=== PATIENT | male | born 1960 | race Caucasian/White ===

== ENCOUNTER 2017-05-19 12:29 | Inpatient (IN) | payer MEDICAID, OTHER ==
[~2017-05-19] VITALS: Ht 188 cm; Wt 92.1 kg
[2017-05-19] MEDS ORDERED: SODIUM CHLORIDE 0.9% 1,000 ML IV ONE (12:53)
[2017-05-19] MEDS ORDERED: SODIUM CHLORIDE FLUSH 10ML SYR IVF ONE (13:00)
[2017-05-19 13:12] LABS: HEMATOCRIT 39.6 % (39.2-51.8); HEMOGLOBIN 13.3 g/dL (13.7-18.0); WHITE BLOOD COUNT 18.2 x10^3/uL (3.4-10)
[2017-05-19 13:23] LABS: ASPARTATE AMINO TRANSFERASE 17 U/L (15-37); BLOOD UREA NITROGEN 12 mg/dL (7-18)
[2017-05-19 13:35] LABS: DIFF TOTAL CELLS COUNTED 100 CELL DIFF
[2017-05-19 13:37] LABS: LARGE PLATELETS 1+; VERIFY COUNTS? YES
[2017-05-19] MEDS ORDERED: AMPICILLIN/SULBACTAM 3 GM in SODIUM CHLORIDE 0.9% 100 ML IV ONE (14:00)
[2017-05-19] MEDS ORDERED: SODIUM CHLORIDE 0.9% 1,000ML IVBOLUS ONE (14:30)
[2017-05-19] MEDS ORDERED: VANCOMYCIN PER PHARMACY MC PRN ×2 (15:00→15:30)
[2017-05-19] MEDS ORDERED: PHARMACOKINETIC CONSULTATION MC ONE (15:00)
[2017-05-19] MEDS ORDERED: VANCOMYCIN 2,000 MG in SODIUM CHLORIDE 0.9% 500 ML IV ONE (15:00)
[2017-05-19] MEDS ORDERED: NS + 20MEQ KCL 1,000 ML IV SCH (15:22)
[2017-05-19] MEDS ORDERED: POLYETHYLENE GLYCOL 17 GM PACKET PO PRN (15:30)
[2017-05-19] MEDS ORDERED: ONDANSETRON 2MG/ML, 2ML IVPush PRN (15:30)
[2017-05-19] MEDS ORDERED: POTASSIUM CHLORIDE 20 MEQ TAB.ER.PRT PO ONE (15:30)
[2017-05-19] MEDS ORDERED: LABETALOL 5MG/ML, 20ML IVPush PRN (15:30)
[2017-05-19] MEDS ORDERED: ACETAMINOPHEN 325 MG TABLET PO PRN (15:30)
[2017-05-19] MEDS ORDERED: BISACODYL 10 MG SUPP PR PRN (15:30)
[2017-05-19] MEDS: AMPICILLIN/SULBACTAM 3 GM in SODIUM CHLORIDE 0.9% 100 ML IV SCH ×2 (15:30→21:39)
[2017-05-19] MEDS ORDERED: DOCUSATE 100 MG CAPSULE PO PRN (15:30)
[2017-05-19] MEDS ORDERED: POTASSIUM CHLORIDE 20 MEQ TAB.ER.PRT ONE (15:48)
[2017-05-19] MEDS ORDERED: ENOXAPARIN 40 MG/0.4 ML ONE (16:09)
[2017-05-19] MEDS ORDERED: NS + 20MEQ KCL 1,000 ML IV ONE (16:09)
[2017-05-19] MEDS: ENOXAPARIN 40 MG/0.4 ML SQ SCH (16:17)
[2017-05-19] MEDS ORDERED: PHARMACOKINETIC MONITORING MC PRN (17:30)
[2017-05-19 19:36] VITALS: BP 128/75
[2017-05-20 01:30] VITALS: BP 119/74
[2017-05-20] MEDS: AMPICILLIN/SULBACTAM 3 GM in SODIUM CHLORIDE 0.9% 100 ML IV SCH ×4 (03:26→21:06)
[2017-05-20] MEDS: VANCOMYCIN 1,800 MG in SODIUM CHLORIDE 0.9% 250 ML IV SCH ×2 (04:08→18:27)
[2017-05-20 05:58] LABS: HEMATOCRIT 36.7 % (39.2-51.8); HEMOGLOBIN 12.4 g/dL (13.7-18.0); WHITE BLOOD COUNT 18.1 x10^3/uL (3.4-10)
[2017-05-20 06:19] LABS: DIFF TOTAL CELLS COUNTED 100 CELL DIFF
[2017-05-20 06:21] LABS: VERIFY COUNTS? YES
[2017-05-20 06:35] LABS: BLOOD UREA NITROGEN 12 mg/dL (7-18)
[2017-05-20 06:49] LABS: DAU SCREEN DISCLAIMER
[2017-05-20 08:00] VITALS: BP 120/73
[2017-05-20] MEDS: HYDROcodone/APAP 5/325 TABLET PO PRN ×2 (10:43→21:06)
[2017-05-20 13:57] VITALS: BP 108/70
[2017-05-20] MEDS: ENOXAPARIN 40 MG/0.4 ML SQ SCH (18:27)
[2017-05-20 19:04] VITALS: BP 118/75
[2017-05-21 02:40] VITALS: BP 110/67
[2017-05-21] MEDS: AMPICILLIN/SULBACTAM 3 GM in SODIUM CHLORIDE 0.9% 100 ML IV SCH ×4 (03:36→23:30)
[2017-05-21] MEDS: VANCOMYCIN 1,800 MG in SODIUM CHLORIDE 0.9% 250 ML IV SCH ×2 (04:11→18:35)
[2017-05-21 07:49] VITALS: BP 95/59
[2017-05-21] MEDS: HYDROcodone/APAP 5/325 TABLET PO PRN ×3 (10:40→23:38)
[2017-05-21 11:00] LABS: HEMATOCRIT 34.5 % (39.2-51.8); HEMOGLOBIN 11.7 g/dL (13.7-18.0); WHITE BLOOD COUNT 12.2 x10^3/uL (3.4-10)
[2017-05-21 11:12] LABS: BLOOD UREA NITROGEN 13 mg/dL (7-18)
[2017-05-21 13:01] VITALS: BP 114/68
[2017-05-21] MEDS: ENOXAPARIN 40 MG/0.4 ML SQ SCH (18:35)
[2017-05-21 20:23] VITALS: BP 112/71
[2017-05-22 02:47] VITALS: BP 118/74
[2017-05-22] MEDS: AMPICILLIN/SULBACTAM 3 GM in SODIUM CHLORIDE 0.9% 100 ML IV SCH (04:01)
[2017-05-22] MEDS: VANCOMYCIN 1,800 MG in SODIUM CHLORIDE 0.9% 250 ML IV SCH (04:51)
[2017-05-22 06:13] LABS: HEMATOCRIT 33.9 % (39.2-51.8); HEMOGLOBIN 11.6 g/dL (13.7-18.0); WHITE BLOOD COUNT 11.3 x10^3/uL (3.4-10)
[2017-05-22 06:26] LABS: BLOOD UREA NITROGEN 11 mg/dL (7-18)
[2017-05-22 07:40] VITALS: BP 131/74
[2017-05-22] MEDS: HYDROcodone/APAP 5/325 TABLET PO PRN ×3 (08:59→22:01)
[2017-05-22] MEDS: SULFAMETH./TRIMETHOPRIM DS 800MG/160MG TABLET PO SCH ×2 (08:59→20:39)
[2017-05-22 14:06] VITALS: BP 104/66
[2017-05-22] MEDS: ENOXAPARIN 40 MG/0.4 ML SQ SCH (17:39)
[2017-05-22 20:42] VITALS: BP 118/72
[2017-05-23 03:50] VITALS: BP 110/68
[2017-05-23 05:26] LABS: HEMATOCRIT 37.6 % (39.2-51.8); HEMOGLOBIN 12.6 g/dL (13.7-18.0); WHITE BLOOD COUNT 9.6 x10^3/uL (3.4-10)
[2017-05-23 05:46] LABS: BLOOD UREA NITROGEN 13 mg/dL (7-18)
[2017-05-23 06:24] VITALS: BP 98/64
[2017-05-23] MEDS: HYDROcodone/APAP 5/325 TABLET PO PRN (08:28)
[2017-05-23] MEDS: SULFAMETH./TRIMETHOPRIM DS 800MG/160MG TABLET PO SCH (08:29)
[2017-05-23] MEDS ORDERED: SULF-169 PO (08:35)
[2017-05-23] MEDS ORDERED: SULFAMETH./TRIMETHOPRIM DS 800MG/160MG TABLET PO SCH (09:00)
== END 2017-05-23 13:03 | disposition home or self-care (01) | DRG 603 ==
LOC: ED 14:26 → EDIP 14:49 → 3NE 17:03
PROVIDERS: ADMIT Hospitalist; ATTEND Hospitalist
DX: L03.116 Cellulitis of left lower limb (principal); R65.10 Systemic inflammatory response syndrome (SIRS) of non-infectious origin without acute organ dysfunction; E44.0 Moderate protein-calorie malnutrition; E87.1 Hypo-osmolality and hyponatremia; D64.9 Anemia, unspecified; L03.115 Cellulitis of right lower limb; Z68.26 Body mass index [BMI] 26.0-26.9, adult; E87.6 Hypokalemia; F17.210 Nicotine dependence, cigarettes, uncomplicated; I10 Essential (primary) hypertension; Z66 Do not resuscitate; Z82.49 Family history of ischemic heart disease and other diseases of the circulatory system; Z59.0 Homelessness
CPT/HCPCS: 36415; 71010; 80048; 80053; 80202; 80307; 81001; 83605; 83880; 84145; 85025; 87040; 93005; 96365; J0295; J1650; J3370; J3480; J7030; J7040; J7050